=== PATIENT | male | born 1960 | race Caucasian/White ===

== ENCOUNTER 2018-03-13 06:51 | Day surgery (SDC) | payer BC ==
[~2018-03-13 06:51] MED LIST: ACETAMINOPHEN 1,000 MG/100 ML BTL IV ONE; CEFAZOLIN 2 Gram 2 GM/50 ML BAG IVPB ONE
[2018-03-13] MEDS ORDERED: MIDAZOLAM HCL 2MG/2ML VIAL IV ONE (06:52)
[2018-03-13] MEDS ORDERED: LIDOCAINE 2% MDV (20MG/ML) 20ML VIAL IV ONE (06:52)
[2018-03-13] MEDS ORDERED: PROPOFOL 10 MG/ML VIAL IV ONE (06:52)
[2018-03-13] MEDS ORDERED: SEVOFLURANE 250 ML INH ONE (06:52)
[2018-03-13] MEDS ORDERED: KETOROLAC 30 MG/ML VIAL IVP ONE (06:52)
[2018-03-13] MEDS ORDERED: DEXAMETHASONE 4 MG/ML 1ML VIAL IVP ONE (06:52)
[2018-03-13] MEDS ORDERED: MORPHINE SULFATE PF 10MG/10ML VIAL IV ONE (06:52)
[2018-03-13] MEDS ORDERED: BUPIVACAINE 0.5% W/EPI MPF 30 ML VIAL IVP ONE (06:52)
--- NOTE | 2018-03-14 07:27 | Operative Note ---
DATE: 03/13/2018. PREOPERATIVE DIAGNOSIS: TEAR OF THE RIGHT ROTATOR CUFF ON THE RIGHT WITH IMPINGEMENT. POSTOPERATIVE DIAGNOSES: 1. A LARGE TEAR OF THE ROTATOR CUFF ON THE RIGHT. 2. RIGHT SHOULDER GLENOHUMERAL LABRAL TEAR FROM APPROXIMATELY THE 8 O'CLOCK TO 12 O'CLOCK POSITION. 3. SEVERE RIGHT SHOULDER EXTERNAL IMPINGEMENT. 4. ADVANCED ARTHROSIS, RIGHT DISTAL CLAVICLE. PROCEDURES: 1. OPEN REPAIR OF A CHRONICALLY TORN RIGHT ROTATOR CUFF TENDON. 2. RIGHT SHOULDER ARTHROSCOPY WITH INTRA-ARTICULAR DEBRIDEMENT. 3. RIGHT SHOULDER OPEN ACROMIOPLASTY, CORACOACROMIAL LIGAMENT RESECTION, AND SUBACROMIAL BURSECTOMY. 4. RIGHT SHOULDER DISTAL CLAVICLE RESECTION. STAFF SURGEON: Corey Hill M.D. ANESTHESIA: General. PREPARATION: ChloraPrep. INDIVIDUAL CONSIDERATIONS: None. DESCRIPTION OF PROCEDURE: The patient was taken to the operating room and placed supine on the operating table. He had the successful induction of a general anesthetic. His right upper extremity was prepped and draped in the usual fashion. The patient had a posterior portal identified for arthroscopy. This was done after he was placed in a semi-seated beach chair position. An 18-gauge spinal needle was then placed in the joint, and the joint was inflated with normal saline with a 60 mL syringe. A stab wound was made, a blunt-tipped trocar for the scope was placed in the joint, and the joint was inflated with normal saline. An anterior accessory portal was then made just inferior to the intact long head of the biceps tendon in a retrograde fashion with a Wissinger yosi, and the joint was irrigated out. The patient had an obvious tear of the supraspinatus. He had some synovitis superiorly. He had fraying of the labrum which was impressive from about the 8 o'clock to 12 o'clock position. This was debrided with a shaver. There were no loose bodies inferiorly in the pouch. The subscapularis looked normal. The long head was normal. The glenohumeral joint was normal. After irrigation, the portals were closed with hina. The patient had an anterior approach to the subacromial space and distal clavicle. The skin was again infiltrated with 0.5% Marcaine with epinephrine prior. Sharp dissection was carried down through the skin and subcutaneous tissue. Small veins were coagulated with a Bovie. An anterior deltoid interval was developed. Care was taken not to split the deltoid more than about 4.0 cm distal to the anterior tip of the acromion to prevent injury to the axillary nerve. Once in the subacromial space, there was a large clement of fluid consistent with a tear. The deltoid was then taken subperiosteally off the anterior aspect of the downsloping acromion, over the top of the intact coracoacromial ligament, and off the anterior aspect of the highly degenerated distal clavicle. The coracoacromial ligament was resected with a Bovie. The distal clavicle was resected with an oscillating saw taking about 1.0 cm. The patient had huge spurs anteriorly on the acromion and extending into the acromioclavicular joint. An anterior acromioplasty was performed, taking about 1.0 cm and taking mostly spur, tapering to a wedge posteromedially to include the spurs at the acromioclavicular joint. The undersurface was then smoothed with a rasp. The very thick bursa was resected. I now had a good look at the rotator cuff. The patient basically had a 2.0 cm tear that looked acute on chronic. It was rather large, about 2.0 cm retracted, and could be easily mobilized. I was easily able to debride it back to good bleeding tendon. I made a trough in the tuberosity with a bur and then brought the tendon into the trough with retention sutures, going through the bone and tying down distally, affecting a near-anatomic repair. I put the shoulder through a full range of motion to ensure there was no further impingement. After irrigation, the deltoid was reattached to the remaining acromion with multiple interrupted #2 Vicryl. The periosteal cuff of the distal clavicle was closed with a running #2 Vicryl. The anterior deltoid interval was closed with a running #1 Vicryl. Subcutaneous tissue was closed with #2-0+ Vicryl. The skin was closed with hina. A sterile Bulkee compressive dressing and sling were applied. The patient tolerated the procedures well, and needle and sponge counts were correct. Estimated blood loss was minimal, and he was taken back Recovery in good condition. There were no complications. JOB NUMBER: [id number] [facility]
== END 2018-03-13 11:55 | disposition home or self-care (01) ==
LOC: SUR 06:51
PROVIDERS: ATTEND Orthopaedic Surgery
DX: M75.101 Unspecified rotator cuff tear or rupture of right shoulder, not specified as traumatic (principal); S43.431A Superior glenoid labrum lesion of right shoulder, initial encounter; M75.41 Impingement syndrome of right shoulder; M19.011 Primary osteoarthritis, right shoulder
CPT/HCPCS: 23412; 23415; 23120; 29823; 01610; J1885; J0690